=== PATIENT | female | born 1990 | race Caucasian/White ===

== ENCOUNTER → 2021-03-20 | Outpatient (CLI) | payer OTHER ==
[~2021-03-20] MED LIST: ESCI10TA10 PO
== END | disposition home or self-care (01) ==
LOC: STAR 13:57
PROVIDERS: ATTEND Orthopaedic Surgery
DX: Z20.822 Contact with and (suspected) exposure to COVID-19 (principal); S93.324A Dislocation of tarsometatarsal joint of right foot, initial encounter; X58.XXXA Exposure to other specified factors, initial encounter; Y93.89 Activity, other specified; Y92.89 Other specified places as the place of occurrence of the external cause; Y99.8 Other external cause status
CPT/HCPCS: U0003; U0005

== ENCOUNTER 2021-03-26 06:11 | Day surgery (SDC) | payer OTHER ==
[2021-03-20 14:39] VITALS: BP 126/80
[~2021-03-26] VITALS: Ht 170.2 cm; Wt 206.8 kg
[2021-03-26] MEDS ORDERED: LACTATED RINGERS 1,000 ML IV SCH (06:30)
[2021-03-26] MEDS ORDERED: CHLORHEXIDINE 15 ML UDC PO ONE (06:30)
[2021-03-26 06:52] LABS: HCG UR SG 1.023 (1.003-1.030)
[2021-03-26] MEDS ORDERED: BUPIVACAINE/PF 0.5% ONE (07:46)
[2021-03-26] MEDS ORDERED: LIDOCAINE/PF 1%, 30ML ONE (07:46)
[2021-03-26] MEDS ORDERED: FENTANYL PF 250 MCG/5ML ONE ×2 (07:55→08:24)
[2021-03-26] MEDS ORDERED: MIDAZOLAM 1 MG/ML, 2ML ONE (07:55)
[2021-03-26] MEDS ORDERED: KETAMINE 10 MG/ML, 20ML ONE (07:58)
[2021-03-26] MEDS ORDERED: CEFAZOLIN 1,000 MG ONE (07:58)
[2021-03-26] MEDS ORDERED: SUCCINYLCHOLINE 20 MG/ML, 10ML ONE (07:58)
[2021-03-26] MEDS ORDERED: KETOROLAC 30 MG/1 ML ONE (07:58)
[2021-03-26] MEDS ORDERED: DEXAMETHASONE 4 MG/ML, 1ML ONE (07:58)
[2021-03-26] MEDS ORDERED: HYDROmorphone 1 MG/ML, 1ML INJ ONE (08:54)
[2021-03-26] MEDS ORDERED: hydrALAzine 20 MG/ML, 1ML IV PRN (09:00)
[2021-03-26] MEDS ORDERED: METHOCARBAMOL 1,000 MG in DEXTROSE 5% 100 ML IV PRN (09:00)
[2021-03-26] MEDS ORDERED: HYDROmorphone 1 MG/ML, 1ML INJ IVPush PRN (09:00)
[2021-03-26] MEDS ORDERED: MEPERIDINE/PF 25MG/0.5ML IVPush PRN (09:00)
[2021-03-26] MEDS ORDERED: PROMETHAZINE 25 MG/ML, 1ML IVPush PRN (09:00)
[2021-03-26] MEDS ORDERED: ACETAMINOPHEN 325 MG TABLET PO PRN (09:00)
[2021-03-26] MEDS ORDERED: ONDANSETRON 2MG/ML, 2ML IVPush PRN (09:00)
[2021-03-26] MEDS ORDERED: LABETALOL 5MG/ML, 20ML IV PRN (09:00)
[2021-03-26] MEDS ORDERED: OXYcodone 5 MG/5 ML ORAL.SOL UDC PO PRN (09:00)
[2021-03-26] MEDS ORDERED: FENTANYL PF 100 MCG/2ML IV PRN (09:00)
[2021-03-26] MEDS ORDERED: MIDAZOLAM 1 MG/ML, 2ML IV PRN (09:00)
[2021-03-26] MEDS ORDERED: PROPOFOL 50 ML ONE (09:56)
== END 2021-03-26 13:40 | disposition home or self-care (01) ==
LOC: OUT 06:11
PROVIDERS: ATTEND Orthopaedic Surgery
DX: S93.324A Dislocation of tarsometatarsal joint of right foot, initial encounter (principal); G47.33 Obstructive sleep apnea (adult) (pediatric); E66.01 Morbid (severe) obesity due to excess calories; W17.2XXA Fall into hole, initial encounter; Y93.89 Activity, other specified; Y92.89 Other specified places as the place of occurrence of the external cause; Y99.8 Other external cause status
CPT/HCPCS: 20902; 28615; 28730; 73620; 81025; C1713; J0330; J0690; J1100; J1170; J1885; J2250; J2704; J3010; J7120; 76000